=== PATIENT | female | born 1990 | race Caucasian/White ===

== ENCOUNTER → 2023-11-05 17:13 | Outpatient (REF) | payer BC, SELFPAY | LOC: PNTC 17:13 | PROVIDERS: ATTENDING PHYSICIAN Obstetrics & Gynecology | DX: O43.199 Other malformation of placenta, unspecified trimester (principal) | CPT/HCPCS: 76816 ==

== ENCOUNTER → 2023-11-18 06:59 | Outpatient (REF) | payer BC, SELFPAY | LOC: PNTC 06:59 | PROVIDERS: ATTENDING PHYSICIAN Obstetrics & Gynecology | DX: Z36.0 Encounter for antenatal screening for chromosomal anomalies (principal); O43.129 Velamentous insertion of umbilical cord, unspecified trimester | CPT/HCPCS: 59025 ==

== ENCOUNTER → 2023-11-25 11:00 | Outpatient (REF) | payer BC, SELFPAY | LOC: PNTC 11:00 | PROVIDERS: ATTENDING PHYSICIAN Obstetrics & Gynecology | DX: O43.123 Velamentous insertion of umbilical cord, third trimester (principal) | CPT/HCPCS: 59025; 76815 ==

== ENCOUNTER 2023-12-04 21:10 | Observation (INO) | payer BC, SELFPAY ==
[2023-12-04 21:23] VITALS: BP 131/74; BMI 29.2
== END 2023-12-05 00:26 | disposition home or self-care (01) ==
LOC: LDRP 21:10
PROVIDERS: ADMITTING PHYSICIAN Obstetrics & Gynecology
DX: R10.9 Unspecified abdominal pain (principal); O43.123 Velamentous insertion of umbilical cord, third trimester; Z3A.36 36 weeks gestation of pregnancy; N89.8 Other specified noninflammatory disorders of vagina; O43.893 Other placental disorders, third trimester
CPT/HCPCS: 86850; 86900; 86901; G0378

== ENCOUNTER 2023-12-05 17:34 | Inpatient (IN) | payer BC, SELFPAY ==
[2023-12-05 17:48] VITALS: BP 114/80
[2023-12-05 19:01] LABS: % Basophils 0.2 % (0-2); % Eosinophils 0.2 % (0-6); % Immature Granulocytes 0.4 % (0-0.5); % Lymphocytes 7.6 % (20.5-51.1); % Monocytes 5.9 % (1.7-9.3); % Neutrophils 85.7 % (42.2-75.2); Absolute Immature Granulocytes 0.1 10^3/uL (0-0.05); Absolute Monocytes 0.8 10^3/uL (0.1-0.6); Absolute Neutrophils 11.7 10^3/uL (1.4-6.5); Hematocrit 31.4 % (37.0-47.0); Hemoglobin 10.9 g/dL (12.0-16.0); Mean Corp Hgb Conc. 34.7 g/dL (33.0-37.0); Mean Corpuscular Hgb 28.8 pg (27.0-31.0); Mean Corpuscular Volume 82.8 fL (81.0-99.0); Mean Platelet Volume 11.4 fL (7.4-10.4); Nucleated Red Blood Cells % 0 %; Platelet Count 207 10^3/uL (130-400); Red Blood Cell Count 3.79 10^6/uL (4.20-5.40); Red Cell Dist. Width 12.9 % (11.5-14.5); White Blood Cell Count 13.6 10^3/uL (4.8-10.8)
[2023-12-05] MEDS: FENTANYL/BUPIVACAINE 100 EPIDURAL (19:32)
[2023-12-05] MEDS: SUBLIMAZE 100 MCG EPIDURAL (19:32)
[2023-12-05] MEDS: PENICILLIN 110 UNITS IV (20:14)
[2023-12-05] MEDS: PITOCIN 10 UNITS IM (20:55)
[2023-12-05] MEDS: PITOCIN 30 UNITS/NSS 500 ML IV (21:30)
[2023-12-06] MEDS: TYLENOL 650 MG PO ×4 (03:54→23:53)
[2023-12-06] MEDS: MOTRIN 600 MG PO ×4 (03:54→23:53)
[2023-12-06 04:38] LABS: Hematocrit 29.9 % (37.0-47.0); Hemoglobin 10.1 g/dL (12.0-16.0)
[2023-12-06] MEDS: PROTONIX 40 MG PO (07:54)
[2023-12-06] MEDS: PRENATAL PLUS 1 TABLET PO (07:54)
[2023-12-06] MEDS: ZOLOFT 50 MG PO (07:54)
[2023-12-07] MEDS: MOTRIN 600 MG PO (06:22)
[2023-12-07] MEDS: TYLENOL 650 MG PO (06:22)
[2023-12-07] MEDS: SENOKOT-S 1 TABLET PO (08:56)
[2023-12-07] MEDS: PROTONIX 40 MG PO (08:56)
[2023-12-07] MEDS: ZOLOFT 50 MG PO (08:56)
[2023-12-07] MEDS: PRENATAL PLUS 1 TABLET PO (08:56)
[2023-12-08 11:49] LABS: Syphilis/T. pallidum Ab Reflex Negative (Negative)
== END 2023-12-07 19:00 | disposition home or self-care (01) | DRG 807 ==
LOC: LDRP 17:34
PROVIDERS: ADMITTING PHYSICIAN Obstetrics & Gynecology
PROC: 0HQ9XZZ Repair Perineum Skin, External Approach (ICD-10-PCS; 2023-12-05)
PROC: 10E0XZZ Delivery of Products of Conception, External Approach (ICD-10-PCS; 2023-12-05)
DX: O43.193 Other malformation of placenta, third trimester (principal); Z37.0 Single live birth; O76 Abnormality in fetal heart rate and rhythm complicating labor and delivery; O70.0 First degree perineal laceration during delivery; Z3A.36 36 weeks gestation of pregnancy; O69.3XX0 Labor and delivery complicated by short cord, not applicable or unspecified
CPT/HCPCS: 88307; 85014; 85018; 85025; 86780; 86850; 86900; 86901

== ENCOUNTER 2025-02-24 09:19 | Emergency (ER) | payer OTHER, SELFPAY ==
[2025-02-24 09:20] VITALS: BP 127/82
--- NOTE | 2025-02-24 09:35 | ED.GENMED ---
History of Present Illness
General
Chief Complaint: Abdominal Symptoms
Source: patient
Exam Limitations: none
Time Seen by Provider: 02/24/25 09:25
Nursing documentation reviewed up to this point in time: agreed with
History of Present Illness
History of Present Illness:
34 yr old female presents to the ED for evaluation. Patient approximately 5-1/2 weeks and has been nauseous and vomiting for the past week worse over the past 2 days. She has her first appointment with [facility] next
Thursday. During her prior she vomited throughout the entire .
She denies any vaginal bleeding or cramping. Her last menstrual period was January 14. She did have significant hyperemesis with her previous and required Zofran throughout the entire and was given zofran.
Phy Exam
General Physical Exam
General Presentation: no apparent distress
General age: appears stated age
General Skin: warm and dry
General Habitus: normal
Course
Orders/Labs/Results
Orders:
Orders
02/24/25 09:29
IV Insert/Care/Rem.- Treatment PRN
02/24/25 09:55
Complete Blood Count/With Diff Urgent
02/24/25 09:56
Test Result ONCE
02/24/25 10:02
Ondansetron Injectable [Zofran] 4 mg IV NOW STA
02/24/25 10:03
0.9% Sodium Chloride 1000 ml [Nss] 1,000 ml IV BOLUS
02/24/25 12:04
Comprehensive Metabolic Panel Urgent
HCG, Serum Qualitative Screen Urgent
02/24/25 12:27
Ondansetron Injectable [Zofran] 4 mg .ROUTE .STK-MED ONE
02/24/25 13:42
Lactated Ringers [Lr] 1,000 ml IV BOLUS
Abnormal Lab Results
02/24/25 02/24/25
09:55 12:04
MPV 10.5 H fL
(7.4-10.4)
Chloride 108 H mmol/L
(98-107)
02/24/25 09:55
02/24/25 12:04
Vital Signs
Initial and Last Documented VS:
Initial Vital Signs
Temp Pulse Resp BP Pulse Ox
97.8 F 95 16 127/82 99
02/24/25 09:20 02/24/25 09:20 02/24/25 09:20 02/24/25 09:20 02/24/25 09:20
Last Documented Vital Signs
Temp Pulse Resp BP Pulse Ox
99.0 F 73 18 112/73 100
02/24/25 15:10 02/24/25 15:10 02/24/25 15:10 02/24/25 15:10 02/24/25 15:10
MDM/Problems Addressed
Differential Diagnosis Includes:
Not limited to hyperemesis gravidarum, dehydration, electrolyte abnormality
MDM/Problems Addressed:
As documented patient is a 34-year-old female patient of women's health [facility] here [place] approximately 5-1/2 weeks due for first appointment next week. She presented with nausea vomiting. Throughout her first she had
hyperemesis throughout the entire and tolerated Zofran very well. She was sent by [facility] for vomiting today. She has no abdominal cramping or bleeding complaints. Denies any recent fever or chills. Case discussed with Dr. Day
[facility]EFING SPECIALIST who agrees with Zofran and fluids. Patient received normal saline as well as liter of lactated Ringer's feeling better tolerating fluids without any vomiting here. She continued with no pain cramping or vaginal bleeding. She is to
follow-up as scheduled next week. As reviewed with [facility] will give a small prescription for Zofran until seen
Chronic conditions affecting care:
Previous hyperemesis gravidarum with first
Chronic conditions affecting care: HTN
*Pulse Oximetry
SaO2: 99
Oxygen Mode of Delivery: Room air
Patient hypoxic: no
*Critical Care Note
Total Time (30-74mins, 75-104mins- exclusive of procedures): Not Applicable
ED Attending Note
-
Portions of this chart may have been created with voice recognition software.� Occasional wrong word or��sound alike� substitutions may have occurred due to the inherent limitations of voice recognition software.
Discharge Plan
Departure
Patient Disposition: Home (Routine Discharge)
Date of Disposition: 02/24/25
Time of Disposition: 15:05
Patient with high blood pressure during this ER visit?: No
Condition: Fair
Covid-19: Not Applicable
Discharge Problem:
Hyperemesis arising during
Instructions: Hyperemesis Gravidarum (DC), BLOOD PRESSURE
Prescriptions:
New
ondansetron 4 mg tablet,disintegrating
4 mg PO Q8H PRN (Reason: nausea and vomiting) Qty: 10 0RF
No Action
ondansetron 4 mg Tablet,Disintegrating
4 mg PO Q6H
sertraline 50 mg Tablet
50 mg PO DAILY
omeprazole 40 mg Capsule,Delayed Release(Dr/Ec)
40 mg PO DAILY
Vitamin 27 mg iron- 800 mcg Tablet
1 tab PO DAILY
ibuprofen 600 mg Tablet
600 mg PO Q6HPRN PRN (Reason: moderate pain/cramps) Qty: 90 0RF
Referrals:
NONE,* [Family Provider, Internal Medicine]
Activity Restrictions/Additional Instructions:
As discussed a prescription for Zoan was sent to her pharmacy take as directed. Please call [facility] today to make an appointment soon as possible for reevaluation return if any worsening of symptoms
Interventions
Interventions:
*Risk Screen - Suicide Last Done: 02/24/25 09:20
*General Assessment Last Done: 02/24/25 09:20
*Neglect/Abuse Screening Last Done: 02/24/25 09:36
*ED- Fall Risk Assessment Last Done: 02/24/25 09:36
*ED COVID-19 Vaccine History Last Done: 02/24/25 09:36
*ED Influenza Vaccine History Last Done: 02/24/25 09:36
*Nursing Disposition Last Done: 02/24/25 15:16
DD-Orkizk-Jxggxowzbx Assessment Last Done: 02/24/25 09:36
Discharge Date and Time
Discharge Date/Time: 02/24/25 15:17
Print Language: ISRAELI
[2025-02-24 09:36] VITALS: BMI 27.2
[2025-02-24 10:16] LABS: Hematocrit 42.3 % (37.0-47.0); Hemoglobin 14.3 g/dL (12.0-16.0); Mean Corp Hgb Conc. 33.8 g/dL (33.0-37.0); Mean Corpuscular Volume 88.1 fL (81.0-99.0); Nucleated Red Blood Cells % 0 %; Red Cell Dist. Width 13.2 % (11.5-14.5)
[2025-02-24] MEDS: NSS 1000 IV (10:23)
[2025-02-24 10:43] LABS: Platelet Count 244 10^3/uL (130-400)
[2025-02-24] MEDS: ZOFRAN 4 MG IV (12:27)
[2025-02-24 12:37] LABS: HCG, Serum Qualitative Screen Positive
[2025-02-24 12:43] LABS: ALT (SGPT) 17 U/L (0-35); AST (SGOT) 16 U/L (14-36); Albumin 3.8 g/dl (3.5-5.0); Alkaline Phosphatase 72 U/L (38-126); Blood Urea Nitrogen 8 mg/dl (7-17); Calcium 8.5 mg/dl (8.4-10.2); Carbon Dioxide 22 mmol/L (22-30); Chloride 108 mmol/L (98-107); Estimated Creatinine Clearance > 125 ml/min; Glucose 83 mg/dl (70-99); Potassium 4.3 mmol/L (3.5-5.1); Sodium 136 mmol/L (135-145); Total Protein 6.6 g/dl (6.3-8.2); eGFR > 60.00
[2025-02-24] MEDS: LR 1000 IV (13:51)
[2025-02-24 15:10] VITALS: BP 112/73
== END 2025-02-24 15:17 | disposition home or self-care (01) ==
LOC: EMR 09:19
PROVIDERS: Nurse Practitioner; EMERGENCY PHYSICIAN Student in an Organized Health Care Education/Training Program
DX: O21.0 Mild hyperemesis gravidarum (principal); O16.1 Unspecified maternal hypertension, first trimester; Z3A.01 Less than 8 weeks gestation of pregnancy
CPT/HCPCS: 96374; 96361; 99284; 80053; 84703; 85025

== ENCOUNTER → 2025-03-23 11:30 | Outpatient (REF) | payer OTHER, SELFPAY | LOC: RAD 11:30 | PROVIDERS: ATTENDING PHYSICIAN Obstetrics & Gynecology | DX: O26.851 Spotting complicating pregnancy, first trimester (principal) | CPT/HCPCS: 76801; 76817 ==

== ENCOUNTER 2025-05-11 11:59 | Emergency (ER) | payer OTHER, SELFPAY ==
[2025-05-11 12:01] VITALS: BP 143/77
[2025-05-11 12:26] VITALS: BP 112/75
[2025-05-11 12:29] VITALS: BMI 28.5
[2025-05-11 12:30] VITALS: BP 112/85
--- NOTE | 2025-05-11 12:56 | ED.GENMED ---
History of Present Illness
General
Chief Complaint: Abdominal Symptoms
Source: patient
Exam Limitations: none
Time Seen by Provider: 05/11/25 12:38
Nursing documentation reviewed up to this point in time: agreed with
History of Present Illness
History of Present Illness:
35 female about 16 weeks send chronic nausea, predating her she is on Zofran Diclegis and a suppository, developed some increased nausea and diarrhea few days ago not keeping much down, no bleeding, no cramping, has not yet
felt the baby move, referred here by her HEALTH COACH, no blood in her vomit or stool, her mother is sick with a similar illness, patient has had no raw or undercooked food
Past History
Past History
ED Past Medical History: Other (Cyclical vomiting syndrome)
Social History
Tobacco: Non-smoker
Alcohol: None
Drug: None
Personal:
Living: with family
Employment: Employed
Review of Systems
Review of Systems
All Other Systems: Not applicable
Constitutional: Reports fatigue
EENT: Reports no symptoms
Respiratory: Reports no symptoms
Cardiac: Denies chest pain
ABD/GI: Reports nausea, vomiting and diarrhea; Denies abdominal pain
: Denies bleeding
Phy Exam
Physical Exam
Physical Exam:
Physical Exam
General: no apparent distress, not acutely ill
Neck: Lips are dry
Heart: s1/s2 regular rate and rhythm, no murmur. equal radial pulses.
Lungs: no acute respiratory distress. clear bilaterally
Abdomen: Gravid fundus below the umbilicus not
Neuro: alert and oriented. no focal neurological deficits
Skin: no rash
Psychiatric: well kept. interactive and cooperative
Extremities: no edema.
Course
Orders/Labs/Results
Orders:
Orders
05/11/25 12:56
Ondansetron Injectable [Zofran] 4 mg IV NOW STA
05/11/25 13:00
Heart Tones ONCE
05/11/25 13:05
Complete Blood Count/With Diff Urgent
Comprehensive Metabolic Panel Urgent
05/11/25 14:11
Norovirus by PCR Urgent
NEO Source: Feces/Stool
Specimen Description:
Stool Culture Urgent
NEO Source: Feces/Stool
Specimen Description:
Loperamide [Imodium] 2 mg PO NOW STA
Abnormal Lab Results
05/11/25
13:05
RBC 4.17 L 10^6/uL
(4.20-5.40)
Absolute Lymphs (auto) 0.9 L 10^3/uL
(1.2-3.4)
Neutrophils % 81.4 H %
(42.2-75.2)
Lymphocytes % 14.0 L %
(20.5-51.1)
05/11/25 13:05
Vital Signs
Initial and Last Documented VS:
Initial Vital Signs
Temp Pulse Resp BP Pulse Ox
98.2 F 94 18 143/77 99
05/11/25 12:01 05/11/25 12:01 05/11/25 12:01 05/11/25 12:01 05/11/25 12:01
Last Documented Vital Signs
Temp Pulse Resp BP Pulse Ox
98.2 F 82 16 112/73 98
05/11/25 12:01 05/11/25 12:30 05/11/25 12:30 05/11/25 13:00 05/11/25 14:00
MDM/Problems Addressed
Differential Diagnosis Includes:
Nausea vomiting diarrhea hyperemesis cyclic vomiting Food poisoning norovirus
MDM/Problems Addressed:
Nausea vomiting diarrhea
Chronic conditions affecting care:
Chronic nausea vomiting.
Acute Exacerbation and/or Progression of Chronic Illness:
Chronic nausea vomiting
*Pulse Oximetry
SaO2: 98
Oxygen Mode of Delivery: Room air
Patient hypoxic: no
*Critical Care Note
Total Time (30-74mins, 75-104mins- exclusive of procedures): Not Applicable
Update Note
Update Note:
215 update patient feeling better after IV fluids she is making urine still having loose stools try to get a stool culture she is able to provide try Imodium reviewed generally considered safe in reviewed patient
ED Attending Note
-
Portions of this chart may have been created with voice recognition software.� Occasional wrong word or��sound alike� substitutions may have occurred due to the inherent limitations of voice recognition software.
Discharge Plan
Departure
Prescriptions:
No Action
ondansetron 4 mg Tablet,Disintegrating
4 mg PO Q6H
sertraline 50 mg Tablet
50 mg PO DAILY
omeprazole 40 mg Capsule,Delayed Release(Dr/Ec)
40 mg PO DAILY
Vitamin 27 mg iron- 800 mcg Tablet
1 tab PO DAILY
ibuprofen 600 mg Tablet
600 mg PO Q6HPRN PRN (Reason: moderate pain/cramps) Qty: 90 0RF
ondansetron 4 mg tablet,disintegrating
4 mg PO Q8H PRN (Reason: nausea and vomiting) Qty: 10 0RF
prochlorperazine [Compazine] 25 mg Suppository
25 mg AL BID PRN (Reason: nausea/vomiting)
doxylamine-pyridoxine (vit B6) [Diclegis] 10-10 mg Tablet,Delayed Release (Dr/Ec)
1 tab PO TID
Referrals:
UNKNOWN - PT DOES,NOT KNOW [Family Provider]
Interventions
Interventions:
*General Assessment Last Done: 05/11/25 12:01
*Neglect/Abuse Screening Last Done: 05/11/25 12:27
*ED COVID-19 Vaccine History Last Done: 05/11/25 12:27
*ED Influenza Vaccine History Last Done: 05/11/25 12:27
[facility] Fall Risk Assessment Tool Last Done: 05/11/25 12:29
*Risk Screen - Suicide (C-SSRS) Last Done: 05/11/25 12:01
WT-Hhmmjj-Xbhemafcgh Assessment Last Done: 05/11/25 12:27
Discharge Date and Time
Print Language: SLOVAK
[2025-05-11 13:00] VITALS: BP 112/73
[2025-05-11] MEDS: ZOFRAN 4 MG IV (13:12)
[2025-05-11 13:19] LABS: Hematocrit 37.5 % (37.0-47.0); Hemoglobin 12.8 g/dL (12.0-16.0); Mean Corp Hgb Conc. 34.1 g/dL (33.0-37.0); Mean Corpuscular Volume 89.9 fL (81.0-99.0); Nucleated Red Blood Cells % 0 %; Platelet Count 200 10^3/uL (130-400); Red Cell Dist. Width 13.2 % (11.5-14.5)
[2025-05-11 14:29] LABS: ALT (SGPT) 27 U/L (0-35); AST (SGOT) 30 U/L (14-36); Albumin 3.4 g/dl (3.5-5.0); Alkaline Phosphatase 72 U/L (38-126); Blood Urea Nitrogen 10 mg/dl (7-17); Calcium 8.3 mg/dl (8.4-10.2); Carbon Dioxide 21 mmol/L (22-30); Chloride 104 mmol/L (98-107); Estimated Creatinine Clearance > 125 ml/min; Glucose 82 mg/dl (70-99); Potassium 3.7 mmol/L (3.5-5.1); Sodium 133 mmol/L (135-145); Total Protein 6.5 g/dl (6.3-8.2); eGFR > 60.00
[2025-05-11] MEDS: IMODIUM 2 MG PO (14:36)
[2025-05-11 15:00] VITALS: BP 103/70
== END 2025-05-11 15:55 | disposition home or self-care (01) ==
LOC: EMR 11:59
PROVIDERS: EMERGENCY PHYSICIAN Emergency Medicine
DX: O21.9 Vomiting of pregnancy, unspecified (principal); O99.891 Other specified diseases and conditions complicating pregnancy; R19.7 Diarrhea, unspecified; Z3A.16 16 weeks gestation of pregnancy
CPT/HCPCS: 96374; 99284; 80053; 85025; 87045; 87046; 87427; 87798